=== PATIENT | female | born 1945 | race Caucasian/White ===

== ENCOUNTER 2019-06-06 22:28 | Inpatient (IN) | payer OTHER, MEDICAID ==
[~2019-06-06] VITALS: Ht 152.4 cm; Wt 51.8 kg
[2019-06-06] VITALS: BP 93/40
[2019-06-06 20:00] VITALS: BP 98/44
[2019-06-06 21:30] VITALS: BP 98/44
[2019-06-06] MEDS ORDERED: ACETAMINOPHEN 325MG TABLET PO PRN (23:45)
[2019-06-07] MEDS ORDERED: PIPERACILLIN/TAZOBACTAM 3.375 G in DEXT 5% WATER 100 ML IV SCH ×2 (02:00→09:00)
[2019-06-07] MEDS ORDERED: NITR0.4T49 SL (02:14)
[2019-06-07] MEDS ORDERED: LOSA1TAB34 MT (02:15)
[2019-06-07] MEDS ORDERED: LOPHC2 MT (02:17)
[2019-06-07] MEDS ORDERED: DONE10TA36 PO (02:18)
[2019-06-07] MEDS ORDERED: VANCOMYCIN 1 G PREMIX 200 ML IV SCH (03:00)
[2019-06-07 04:00] VITALS: BP 91/42
[2019-06-07 06:00] LABS: HEMOGLOBIN. 8.4 g/dL (12.0-16.0); MEAN CORPUSCULAR HEMOGLOBIN 29.3 pg (28.0-32.0); MEAN PLATELET VOLUME 9.6 fl (7.4-10.4); RED BLOOD CELL COUNT 2.88 mill/uL (4.2-5.4); RED CELL DISTRIBUTION WIDTH 20.2 % (11.6-14.6)
[2019-06-07 06:12] LABS: CHLORIDE 108 mEq/L (98-107)
[2019-06-07 08:00] VITALS: BP_SYST 95; BP_SYST 97; BP_DIAS 45; BP_DIAS 46
[2019-06-07 08:11] LABS: PLATELET 14 x1000/uL (130-400)
[2019-06-07 12:00] VITALS: BP 93/49
[2019-06-07 13:34] LABS: PLATELET ESTIMATE MARKEDLY DECREASED
[2019-06-07] MEDS ORDERED: ONDANSETRON HCL 4MG/2ML INJ IV PRN (14:30)
[2019-06-07] MEDS ORDERED: IPRATROPIUM/ALBUTEROL 0.5-3(2.5)MG/3ML NEB HHN PRN (14:30)
[2019-06-07] MEDS: CEFEPIME 1,000 MG in DEXTROSE 5% WATER 50 ML IV SCH (15:53)
[2019-06-07 16:00] VITALS: BP 87/48
[2019-06-07 16:32] LABS: CLARITY URINE CLOUDY (CLEAR); COLOR URINE YELLOW (YELLOW); KETONES URINE NEGATIVE (NEGATIVE); LEUKOCYTE ESTERASE URINE NEGATIVE (NEGATIVE); NITRITE URINE NEGATIVE (NEGATIVE); OCCULT BLOOD URINE NEGATIVE (NEGATIVE); PH URINE 7.5 (4.5-8.0); PROTEIN URINE NEGATIVE (NEGATIVE)
[2019-06-07 16:47] LABS: *AMPHETAMINES SCREEN URINE NEGATIVE (NEGATIVE); *BARBITURATES SCREEN URINE NEGATIVE (NEGATIVE); *COCAINE SCREEN URINE NEGATIVE (NEGATIVE); METHADONE URINE SCREEN NEGATIVE (NEGATIVE); OPIATES URINE SCREEN NEGATIVE (NEGATIVE)
[2019-06-07 16:48] LABS: *BENZODIAZEPINES SCREEN URINE NEGATIVE (NEGATIVE); CANNABINOID URINE SCREEN NEGATIVE (NEGATIVE); PHENCYCLIDINE URINE SCREEN NEGATIVE (NEGATIVE)
[2019-06-07] MEDS: VANCOMYCIN 500 MG PREMIX 100 ML IV SCH (17:17)
[2019-06-07 20:00] VITALS: BP 93/52
[2019-06-08] VITALS: BP 94/54
[2019-06-08 04:00] VITALS: BP 99/55
[2019-06-08] MEDS: CEFEPIME 1,000 MG in DEXTROSE 5% WATER 50 ML IV SCH ×2 (05:14→14:31)
[2019-06-08] MEDS: VANCOMYCIN 500 MG PREMIX 100 ML IV SCH (06:04)
[2019-06-08 06:34] LABS: HEMATOCRIT. 27.1 % (36.0-48.0); MEAN CORPUSCULAR HEMOGLOBIN 28.7 pg (28.0-32.0); MEAN CORPUSCULAR VOLUME 86.4 fL (81.0-99.0); MEAN PLATELET VOLUME 9.6 fl (7.4-10.4); RED BLOOD CELL COUNT 3.14 mill/uL (4.2-5.4); RED CELL DISTRIBUTION WIDTH 20.8 % (11.6-14.6)
[2019-06-08 06:52] LABS: CHLORIDE 110 mEq/L (98-107)
[2019-06-08 08:00] VITALS: BP 96/48
[2019-06-08 09:00] LABS: PLATELET ESTIMATE MARKEDLY DECREASED
[2019-06-08 09:01] LABS: PLATELET 13 x1000/uL (130-400)
[2019-06-08 12:00] VITALS: BP 98/41
[2019-06-08 13:41] LABS: HEPATITIS B SURFACE ANTIGEN NEGATIVE
[2019-06-08 14:11] LABS: HEPATITIS A AB IGM NEGATIVE (NEGATIVE)
[2019-06-08 16:00] VITALS: BP 74/30
[2019-06-08] MEDS: VANCOMYCIN 1 G PREMIX 200 ML IV SCH (16:12)
[2019-06-08] MEDS ORDERED: MIDODRINE HCL 5MG TABLET PO NR (17:12)
[2019-06-08] MEDS ORDERED: SODIUM CHLORIDE 0.9% 500 ML IV NR (17:15)
[2019-06-08] MEDS ORDERED: MIDODRINE HCL 5MG TABLET PO PRN (17:15)
[2019-06-08 20:00] VITALS: BP 90/51
[2019-06-09] VITALS (7 sets, daily range): BP systolic 88–101; BP diastolic 46–56
[2019-06-09] MEDS: VANCOMYCIN 1 G PREMIX 200 ML IV SCH ×3 (00:25→16:06)
[2019-06-09] MEDS: CEFEPIME 1,000 MG in DEXTROSE 5% WATER 50 ML IV SCH ×2 (04:04→16:06)
[2019-06-09 08:09] LABS: CANCER ANTIGEN 125 50.3 U/mL (0.0-38.1)
[2019-06-09] MEDS ORDERED: MIDODRINE HCL 5MG TABLET PO PRN (10:30)
[2019-06-09 12:20] LABS: HEMOGLOBIN 9.1 g/dL (12.0-16.0); MEAN CORPUSCULAR HEMOGLOBIN 28.9 pg (28.0-32.0); MEAN CORPUSCULAR VOLUME 85.8 fL (81.0-99.0); RED BLOOD CELL COUNT 3.14 mill/uL (4.2-5.4); RED CELL DISTRIBUTION WIDTH 21.1 % (11.6-14.6)
[2019-06-09 12:23] LABS: CHLORIDE 111 mEq/L (98-107)
[2019-06-09 12:25] LABS: PLATELET 14 x1000/uL (130-400)
[2019-06-09 12:49] LABS: INR 1.3; PROTHROMBIN TIME 12.7 sec (9.6-11.0)
[2019-06-09] MEDS ORDERED: ACETAMINOPHEN 650MG SUPP PR PRN (16:15)
[2019-06-09] MEDS ORDERED: LACTULOSE 20G/30ML UDC PO PRN (16:15)
[2019-06-09] MEDS ORDERED: IPRATROPIUM/ALBUTEROL 0.5-3(2.5)MG/3ML NEB HHN PRN (16:15)
[2019-06-09] MEDS ORDERED: DIPHENHYDRAMINE 50MG/ML VIAL IV PRN (16:15)
[2019-06-09] MEDS ORDERED: HYDROCODONE/ACETAMINOPHEN 5/325MG TABLET PO PRN (16:18)
[2019-06-09 16:56] LABS: BG BASE EXCESS 2.4 mmol/L (-2.0-2.0); BG CARBOXYHEMOGLOBIN 0.4 % (0.5-1.5); BG DEOXYHEMOGLOBIN 6.6 % (0.0-5.0); BG FRACTION INSPIRED OXYGEN 21; BG HCO3 ACT 25.6 mmol/L (22.0-26.0); BG METHEMOGLOBIN 0.3 % (0.0-1.5); BG OXYGEN SATURATION 93.4 % (92.0-98.5); BG OXYHEMOGLOBIN 92.7 % (94.0-97.0); BG PCO2 34.1 mmHg (35.0-45.0); BG PH 7.493 (7.350-7.450); BG PO2 71.2 mmHg (75.0-100.0); BG SAMPLE SITE RIGHT BRACHIAL; BG VENT MODE ROOM AIR
[2019-06-09] MEDS: DEXT 5%/0.45% NACL 1000ML 1,000 ML IV SCH (16:57)
[2019-06-09] MEDS: IPRATROPIUM/ALBUTEROL 0.5-3(2.5)MG/3ML NEB HHN SCH (21:32)
[2019-06-09] MEDS ORDERED: IOHEXOL-300 100 ML BOTTLE ONE (23:03)
[2019-06-10] VITALS: BP 96/55
[2019-06-10] MEDS: IPRATROPIUM/ALBUTEROL 0.5-3(2.5)MG/3ML NEB HHN SCH ×4 (02:16→21:25)
[2019-06-10] MEDS: CEFEPIME 1,000 MG in DEXTROSE 5% WATER 50 ML IV SCH ×2 (03:11→15:30)
[2019-06-10 04:00] VITALS: BP 93/51
[2019-06-10 06:39] LABS: HEMATOCRIT. 25.6 % (36.0-48.0); HEMOGLOBIN. 8.5 g/dL (12.0-16.0); MEAN PLATELET VOLUME 9.7 fl (7.4-10.4); RED BLOOD CELL COUNT 2.95 mill/uL (4.2-5.4); RED CELL DISTRIBUTION WIDTH 20.6 % (11.6-14.6)
[2019-06-10 06:50] LABS: CHLORIDE 109 mEq/L (98-107)
[2019-06-10] MEDS ORDERED: PROPOFOL 200MG/20ML VIAL IV ONE (07:38)
[2019-06-10] MEDS ORDERED: LIDOCAINE HCL 1% 20ML VIAL (Pyxis) INJ ONE (07:38)
[2019-06-10 07:42] LABS: PLATELET 14 x1000/uL (130-400)
[2019-06-10 11:46] LABS: PLATELET ESTIMATE MARKEDLY DECREASED
[2019-06-10 12:00] VITALS: BP 96/43
[2019-06-10 16:00] VITALS: BP 100/51
[2019-06-10 20:00] VITALS: BP 93/49
[2019-06-10] MEDS: ACETAMINOPHEN 325MG TABLET PO PRN (20:40)
[2019-06-11] VITALS: BP_SYST 91; BP_SYST 99; BP_DIAS 41; BP_DIAS 62
[2019-06-11] MEDS: CEFEPIME 1,000 MG in DEXTROSE 5% WATER 50 ML IV SCH ×2 (02:54→15:59)
[2019-06-11] MEDS: IPRATROPIUM/ALBUTEROL 0.5-3(2.5)MG/3ML NEB HHN SCH ×4 (03:57→20:13)
[2019-06-11 04:00] VITALS: BP 91/41
[2019-06-11 06:45] LABS: HEMATOCRIT 27.4 % (36.0-48.0); HEMOGLOBIN 9.1 g/dL (12.0-16.0); MEAN CORPUSCULAR HEMOGLOBIN 29.7 pg (28.0-32.0); MEAN CORPUSCULAR VOLUME 89.5 fL (81.0-99.0); RED BLOOD CELL COUNT 3.06 mill/uL (4.2-5.4); RED CELL DISTRIBUTION WIDTH 21.4 % (11.6-14.6)
[2019-06-11 06:48] LABS: CHLORIDE 112 mEq/L (98-107)
[2019-06-11 07:07] LABS: HIV SCREEN 4G Non Reactive (Non Reactive)
[2019-06-11 07:25] LABS: PLATELET 22 x1000/uL (130-400)
[2019-06-11 08:00] VITALS: BP 87/42
[2019-06-11 11:59] VITALS: BP 97/55
[2019-06-11] MEDS ORDERED: SODIUM CHLORIDE 10% FOR INH 15ML VIAL NEB INH SCH (12:00)
[2019-06-11 16:00] VITALS: BP 92/61
[2019-06-11 20:00] VITALS: BP 96/50
[2019-06-11] MEDS ORDERED: IOHEXOL-300 100 ML BOTTLE ONE (21:25)
[2019-06-11] MEDS: DEXT 5%/0.45% NACL 1000ML 1,000 ML IV SCH (21:47)
[2019-06-12] VITALS: BP 90/43
[2019-06-12] MEDS: IPRATROPIUM/ALBUTEROL 0.5-3(2.5)MG/3ML NEB HHN SCH ×4 (01:30→21:13)
[2019-06-12] MEDS: CEFEPIME 1,000 MG in DEXTROSE 5% WATER 50 ML IV SCH ×2 (02:28→15:37)
[2019-06-12 04:00] VITALS: BP 99/50
[2019-06-12 07:21] LABS: HEMATOCRIT. 26.4 % (36.0-48.0); HEMOGLOBIN. 8.9 g/dL (12.0-16.0); MEAN CORPUSCULAR HEMOGLOBIN 29.1 pg (28.0-32.0); MEAN CORPUSCULAR VOLUME 86.2 fL (81.0-99.0); MEAN PLATELET VOLUME 9.6 fl (7.4-10.4); RED BLOOD CELL COUNT 3.07 mill/uL (4.2-5.4); RED CELL DISTRIBUTION WIDTH 21.2 % (11.6-14.6)
[2019-06-12 07:57] LABS: CHLORIDE 110 mEq/L (98-107)
[2019-06-12 08:24] LABS: PLATELET 16 x1000/uL (130-400)
[2019-06-12 12:00] VITALS: BP 68/29
[2019-06-12] MEDS ORDERED: SODIUM CHLORIDE 0.9% 1,000 ML IV SCH ×2 (12:45→13:00)
[2019-06-12 14:16] LABS: PLATELET ESTIMATE MARKEDLY DECREASED
[2019-06-12] MEDS: MIDODRINE HCL 5MG TABLET PO SCH ×2 (15:37→22:38)
[2019-06-12 16:00] VITALS: BP 99/51
[2019-06-12 17:00] VITALS: BP 110/55
[2019-06-12 20:00] VITALS: BP 90/43
[2019-06-12] MEDS: DEXT 5%/0.45% NACL 1000ML 1,000 ML IV SCH (22:40)
[2019-06-13] VITALS: BP 103/49
[2019-06-13] MEDS: CEFEPIME 1,000 MG in DEXTROSE 5% WATER 50 ML IV SCH ×2 (02:51→16:03)
[2019-06-13] MEDS: DEXT 5%/0.45% NACL 1000ML 1,000 ML IV SCH ×2 (02:51→21:59)
[2019-06-13] MEDS: IPRATROPIUM/ALBUTEROL 0.5-3(2.5)MG/3ML NEB HHN SCH ×4 (03:03→21:28)
[2019-06-13 04:00] VITALS: BP_SYST 78; BP_SYST 79; BP_SYST 88; BP_DIAS 36; BP_DIAS 39; BP_DIAS 45
[2019-06-13] MEDS: MIDODRINE HCL 5MG TABLET PO SCH ×3 (06:29→21:54)
[2019-06-13 06:52] LABS: HEMATOCRIT. 24.8 % (36.0-48.0); HEMOGLOBIN. 8.3 g/dL (12.0-16.0); MEAN PLATELET VOLUME 9.5 fl (7.4-10.4); RED BLOOD CELL COUNT 2.85 mill/uL (4.2-5.4); RED CELL DISTRIBUTION WIDTH 21.7 % (11.6-14.6)
[2019-06-13 07:05] LABS: PLATELET 15 x1000/uL (130-400)
[2019-06-13 07:21] LABS: CHLORIDE 111 mEq/L (98-107)
[2019-06-13 08:48] VITALS: BP 94/45
[2019-06-13 10:13] LABS: PLATELET ESTIMATE MARKEDLY DECREASED
[2019-06-13 12:08] VITALS: BP 93/47
[2019-06-13] MEDS ORDERED: SODIUM CHLORIDE 10% FOR INH 15ML VIAL NEB INH NR (15:00)
[2019-06-13 16:36] VITALS: BP 95/49
[2019-06-13 20:00] VITALS: BP_SYST 90; BP_SYST 95; BP_SYST 98; BP_DIAS 40; BP_DIAS 48
[2019-06-14] VITALS: BP 93/35
[2019-06-14] MEDS: IPRATROPIUM/ALBUTEROL 0.5-3(2.5)MG/3ML NEB HHN SCH ×4 (01:24→21:17)
[2019-06-14] MEDS: CEFEPIME 1,000 MG in DEXTROSE 5% WATER 50 ML IV SCH ×2 (03:56→16:02)
[2019-06-14 04:00] VITALS: BP 93/41
[2019-06-14 06:37] LABS: HEMATOCRIT. 25.3 % (36.0-48.0); HEMOGLOBIN. 8.6 g/dL (12.0-16.0); MEAN CORPUSCULAR HEMOGLOBIN 29.8 pg (28.0-32.0); MEAN CORPUSCULAR VOLUME 88.1 fL (81.0-99.0); MEAN PLATELET VOLUME 9.6 fl (7.4-10.4); RED BLOOD CELL COUNT 2.87 mill/uL (4.2-5.4)
[2019-06-14] MEDS: MIDODRINE HCL 5MG TABLET PO SCH ×3 (06:44→20:57)
[2019-06-14 06:59] LABS: CHLORIDE 109 mEq/L (98-107)
[2019-06-14 07:57] LABS: PLATELET 16 x1000/uL (130-400)
[2019-06-14] MEDS ORDERED: SODIUM CHLORIDE 10% FOR INH 15ML VIAL NEB INH NR ×2 (08:00→15:00)
[2019-06-14 08:32] VITALS: BP 90/40
[2019-06-14 10:38] LABS: NUCLEATED RED BLOOD CELLS 1 /100 WBC; PLATELET ESTIMATE MARKEDLY DECREASED
[2019-06-14 12:37] VITALS: BP 91/45
[2019-06-14] MEDS: DEXT 5%/0.45% NACL 1000ML 1,000 ML IV SCH (13:29)
[2019-06-14 16:18] VITALS: BP 98/46
[2019-06-14 20:00] VITALS: BP_SYST 109; BP_SYST 75; BP_SYST 91; BP_SYST 93; BP_DIAS 37; BP_DIAS 39; BP_DIAS 44; BP_DIAS 46
[2019-06-14] MEDS: ACETAMINOPHEN 325MG TABLET PO PRN (20:57)
[2019-06-15] VITALS (10 sets, daily range): BP systolic 88–102; BP diastolic 37–46
[2019-06-15] MEDS: IPRATROPIUM/ALBUTEROL 0.5-3(2.5)MG/3ML NEB HHN SCH ×4 (01:36→21:22)
[2019-06-15] MEDS: MIDODRINE HCL 5MG TABLET PO SCH ×3 (05:55→21:15)
[2019-06-15 06:27] LABS: HEMATOCRIT. 25.2 % (36.0-48.0); HEMOGLOBIN. 8.3 g/dL (12.0-16.0); MEAN CORPUSCULAR HEMOGLOBIN 29.1 pg (28.0-32.0); MEAN CORPUSCULAR VOLUME 88.1 fL (81.0-99.0); MEAN PLATELET VOLUME 9.3 fl (7.4-10.4); RED BLOOD CELL COUNT 2.86 mill/uL (4.2-5.4); RED CELL DISTRIBUTION WIDTH 21.9 % (11.6-14.6)
[2019-06-15 06:36] LABS: CHLORIDE 111 mEq/L (98-107)
[2019-06-15 06:47] LABS: T4 FREE 0.86 ng/dL (0.76-1.46)
[2019-06-15 13:24] LABS: NUCLEATED RED BLOOD CELLS 1 /100 WBC
[2019-06-15 13:25] LABS: PLATELET 14 x1000/uL (130-400); PLATELET ESTIMATE MARKEDLY DECREASED
[2019-06-15] MEDS: DEXT 5%/0.45% NACL 1000ML 1,000 ML IV SCH (15:15)
[2019-06-15] MEDS ORDERED: SODIUM CHLORIDE 10% FOR INH 15ML VIAL NEB INH NR (16:00)
[2019-06-15] MEDS: CEFTAZIDIME PENTAHYDRATE 2 G in DEXT 5% WATER 100 ML IV SCH (17:09)
[2019-06-16] VITALS (8 sets, daily range): BP systolic 82–107; BP diastolic 40–58
[2019-06-16] MEDS: ACETAMINOPHEN 325MG TABLET PO PRN (00:32)
[2019-06-16] MEDS: CEFTAZIDIME PENTAHYDRATE 2 G in DEXT 5% WATER 100 ML IV SCH ×4 (00:36→23:28)
[2019-06-16 06:05] LABS: CHLORIDE 110 mEq/L (98-107)
[2019-06-16 06:05] LABS: INR 1.1; PROTHROMBIN TIME 11.4 sec (9.6-11.0)
[2019-06-16 06:18] LABS: HEMATOCRIT 24.5 % (36.0-48.0); HEMOGLOBIN 8.2 g/dL (12.0-16.0); MEAN CORPUSCULAR HEMOGLOBIN 29.6 pg (28.0-32.0); MEAN CORPUSCULAR VOLUME 88.3 fL (81.0-99.0); RED BLOOD CELL COUNT 2.78 mill/uL (4.2-5.4); RED CELL DISTRIBUTION WIDTH 21.7 % (11.6-14.6)
[2019-06-16] MEDS: MIDODRINE HCL 5MG TABLET PO SCH ×3 (06:26→22:26)
[2019-06-16] MEDS: IPRATROPIUM/ALBUTEROL 0.5-3(2.5)MG/3ML NEB HHN SCH ×3 (08:27→21:08)
[2019-06-16] MEDS ORDERED: HYDROCODONE/ACETAMINOPHEN 5/325MG TABLET PO PRN (14:15)
[2019-06-16] MEDS: DEXT 5%/0.45% NACL 1000ML 1,000 ML IV SCH (14:23)
[2019-06-16 17:06] LABS: HISTOPLASMA ABS QT DID Negative (Neg:<1:1)
[2019-06-16 18:45] LABS: CLARITY URINE TURBID (CLEAR); COLOR URINE YELLOW (YELLOW); KETONES URINE NEGATIVE (NEGATIVE); LEUKOCYTE ESTERASE URINE NEGATIVE (NEGATIVE); NITRITE URINE NEGATIVE (NEGATIVE); OCCULT BLOOD URINE NEGATIVE (NEGATIVE); PROTEIN URINE 1+ (NEGATIVE); SPECIFIC GRAVITY URINE 1.014 (1.005-1.030); UROBILINOGEN URINE 0.2 E.U./dL (0.2-1.0)
[2019-06-17] VITALS: BP 89/43
[2019-06-17] MEDS: IPRATROPIUM/ALBUTEROL 0.5-3(2.5)MG/3ML NEB HHN SCH ×4 (01:05→20:17)
[2019-06-17 04:00] VITALS: BP 87/43
[2019-06-17] MEDS: ACETAMINOPHEN 325MG TABLET PO PRN ×2 (05:05→21:13)
[2019-06-17] MEDS: MIDODRINE HCL 5MG TABLET PO SCH ×3 (05:05→21:13)
[2019-06-17 06:08] LABS: QFT MITOGEN VALUE >10.00 IU/mL (.); QFT TB GOLD PLUS Negative (Negative); QFT TB1 AG VALUE 0.62 IU/mL (.)
[2019-06-17] MEDS: DEXT 5%/0.45% NACL 1000ML 1,000 ML IV SCH ×2 (06:24→15:32)
[2019-06-17] MEDS: LEVOTHYROXINE SODIUM 25MCG TABLET PO SCH (06:31)
[2019-06-17 06:36] LABS: HEMATOCRIT. 23.9 % (36.0-48.0); HEMOGLOBIN. 8.1 g/dL (12.0-16.0); MEAN CORPUSCULAR HEMOGLOBIN 29.3 pg (28.0-32.0); MEAN CORPUSCULAR VOLUME 85.9 fL (81.0-99.0); MEAN PLATELET VOLUME 9.4 fl (7.4-10.4); RED BLOOD CELL COUNT 2.78 mill/uL (4.2-5.4); RED CELL DISTRIBUTION WIDTH 21.9 % (11.6-14.6)
[2019-06-17 06:50] LABS: CHLORIDE 104 mEq/L (98-107)
[2019-06-17 08:00] VITALS: BP_SYST 84; BP_SYST 87; BP_SYST 97; BP_DIAS 42; BP_DIAS 53; BP_DIAS 60
[2019-06-17 08:06] LABS: PLATELET 17 x1000/uL (130-400)
[2019-06-17] MEDS: CEFTAZIDIME PENTAHYDRATE 2 G in DEXT 5% WATER 100 ML IV SCH ×2 (08:42→16:37)
[2019-06-17 12:49] LABS: PLATELET ESTIMATE MARKEDLY DECREASED
[2019-06-17] MEDS: FLUCONAZOLE 100MG TABLET PO SCH ×2 (15:29→21:12)
[2019-06-17 16:00] VITALS: BP 125/43
[2019-06-17 20:00] VITALS: BP 93/40
[2019-06-18] VITALS (7 sets, daily range): BP systolic 85–131; BP diastolic 40–70
[2019-06-18] MEDS: CEFTAZIDIME PENTAHYDRATE 2 G in DEXT 5% WATER 100 ML IV SCH ×3 (01:05→22:22)
[2019-06-18] MEDS: IPRATROPIUM/ALBUTEROL 0.5-3(2.5)MG/3ML NEB HHN SCH ×4 (02:38→21:34)
[2019-06-18] MEDS: MIDODRINE HCL 5MG TABLET PO SCH ×3 (06:32→21:40)
[2019-06-18] MEDS: LEVOTHYROXINE SODIUM 25MCG TABLET PO SCH (06:32)
[2019-06-18] MEDS: FLUCONAZOLE 100MG TABLET PO SCH (08:40)
[2019-06-18] MEDS ORDERED: FENTANYL CITRATE/PF 50MCG/ML 2ML VIAL ONE (16:00)
[2019-06-18] MEDS ORDERED: MIDAZOLAM HCL 2 MG/2 ML VIAL ONE (16:00)
[2019-06-18] MEDS ORDERED: PROPOFOL 200MG/20ML VIAL IV ONE (16:01)
[2019-06-18] MEDS ORDERED: HYDROMORPHONE HCL/PF 2MG/ML CPJ IV PRN (16:45)
[2019-06-18] MEDS ORDERED: MEPERIDINE HCL/PF 25MG/ML CPJ IV PRN (16:45)
[2019-06-18] MEDS ORDERED: LABETALOL 5MG/ML SYR 20 MG/4 ML SYRINGE IV PRN (16:45)
[2019-06-18] MEDS ORDERED: ONDANSETRON HCL 4MG/2ML INJ IV PRN (16:45)
[2019-06-18] MEDS: DEXT 5%/0.45% NACL 1000ML 1,000 ML IV SCH (21:39)
[2019-06-18] MEDS: ACETAMINOPHEN 325MG TABLET PO PRN (21:40)
[2019-06-19] VITALS (8 sets, daily range): BP systolic 89–121; BP diastolic 40–65
[2019-06-19] MEDS: IPRATROPIUM/ALBUTEROL 0.5-3(2.5)MG/3ML NEB HHN SCH ×2 (02:02→21:04)
[2019-06-19] MEDS: CEFTAZIDIME PENTAHYDRATE 2 G in DEXT 5% WATER 100 ML IV SCH ×3 (05:34→21:08)
[2019-06-19] MEDS: MIDODRINE HCL 5MG TABLET PO SCH ×3 (05:34→20:38)
[2019-06-19 07:37] LABS: CHLORIDE 106 mEq/L (98-107)
[2019-06-19] MEDS: FLUCONAZOLE 100MG TABLET PO SCH (09:17)
[2019-06-19] MEDS: LEVOTHYROXINE SODIUM 25MCG TABLET PO SCH (09:17)
[2019-06-19 09:33] LABS: HEMATOCRIT. 24.1 % (36.0-48.0); HEMOGLOBIN. 8.1 g/dL (12.0-16.0); MEAN CORPUSCULAR HEMOGLOBIN 28.7 pg (28.0-32.0); MEAN CORPUSCULAR VOLUME 85.2 fL (81.0-99.0); MEAN PLATELET VOLUME 9.7 fl (7.4-10.4); RED BLOOD CELL COUNT 2.83 mill/uL (4.2-5.4); RED CELL DISTRIBUTION WIDTH 21.7 % (11.6-14.6)
[2019-06-19 09:36] LABS: PLATELET 16 x1000/uL (130-400)
[2019-06-19] MEDS: DEXT 5%/0.45% NACL 1000ML 1,000 ML IV SCH ×2 (09:50→20:39)
[2019-06-19 10:41] LABS: PLATELET ESTIMATE MARKEDLY DECREASED
[2019-06-19] MEDS: ACETAMINOPHEN 325MG TABLET PO PRN (17:01)
[2019-06-20] VITALS (7 sets, daily range): BP systolic 53–110; BP diastolic 24–49
[2019-06-20] MEDS: IPRATROPIUM/ALBUTEROL 0.5-3(2.5)MG/3ML NEB HHN SCH ×4 (02:00→20:42)
[2019-06-20] MEDS: DEXT 5%/0.45% NACL 1000ML 1,000 ML IV SCH ×2 (02:30→14:02)
[2019-06-20] MEDS: CEFTAZIDIME PENTAHYDRATE 2 G in DEXT 5% WATER 100 ML IV SCH ×3 (05:21→21:22)
[2019-06-20] MEDS: ACETAMINOPHEN 325MG TABLET PO PRN ×2 (05:21→17:04)
[2019-06-20] MEDS: LEVOTHYROXINE SODIUM 25MCG TABLET PO SCH (06:33)
[2019-06-20] MEDS: MIDODRINE HCL 5MG TABLET PO SCH ×3 (06:34→21:22)
[2019-06-20 06:46] LABS: HEMATOCRIT. 24.9 % (36.0-48.0); HEMOGLOBIN. 8.4 g/dL (12.0-16.0); MEAN CORPUSCULAR HEMOGLOBIN 28.9 pg (28.0-32.0); MEAN CORPUSCULAR VOLUME 85.6 fL (81.0-99.0); MEAN PLATELET VOLUME 9.7 fl (7.4-10.4); PLATELET 16 x1000/uL (130-400); RED BLOOD CELL COUNT 2.91 mill/uL (4.2-5.4); RED CELL DISTRIBUTION WIDTH 21.5 % (11.6-14.6)
[2019-06-20 06:50] LABS: CHLORIDE 102 mEq/L (98-107)
[2019-06-20] MEDS: FLUCONAZOLE 100MG TABLET PO SCH (08:47)
[2019-06-20 09:18] LABS: NUCLEATED RED BLOOD CELLS 1 /100 WBC
[2019-06-20 09:19] LABS: PLATELET ESTIMATE MARKEDLY DECREASED
[2019-06-21 00:17] VITALS: BP 92/45
[2019-06-21] MEDS: IPRATROPIUM/ALBUTEROL 0.5-3(2.5)MG/3ML NEB HHN SCH ×3 (01:28→20:58)
[2019-06-21 04:00] VITALS: BP 109/50
[2019-06-21] MEDS: ACETAMINOPHEN 325MG TABLET PO PRN ×2 (05:07→23:09)
[2019-06-21] MEDS: MIDODRINE HCL 5MG TABLET PO SCH ×3 (05:07→22:54)
[2019-06-21] MEDS: CEFTAZIDIME PENTAHYDRATE 2 G in DEXT 5% WATER 100 ML IV SCH ×3 (05:08→22:54)
[2019-06-21] MEDS: LEVOTHYROXINE SODIUM 25MCG TABLET PO SCH (06:55)
[2019-06-21 07:26] LABS: HEMATOCRIT. 24.1 % (36.0-48.0); HEMOGLOBIN. 8.2 g/dL (12.0-16.0); MEAN CORPUSCULAR HEMOGLOBIN 28.9 pg (28.0-32.0); MEAN CORPUSCULAR VOLUME 85.1 fL (81.0-99.0); MEAN PLATELET VOLUME 10.1 fl (7.4-10.4); RED BLOOD CELL COUNT 2.83 mill/uL (4.2-5.4); RED CELL DISTRIBUTION WIDTH 21.1 % (11.6-14.6)
[2019-06-21 07:46] LABS: PLATELET 15 x1000/uL (130-400)
[2019-06-21 08:00] VITALS: BP 98/43
[2019-06-21 08:04] LABS: CHLORIDE 102 mEq/L (98-107)
[2019-06-21 08:20] LABS: CREATINE KINASE 116 IU/L (26-192)
[2019-06-21] MEDS: FLUCONAZOLE 100MG TABLET PO SCH (09:06)
[2019-06-21] MEDS: DEXT 5%/0.45% NACL 1000ML 1,000 ML IV SCH (09:12)
[2019-06-21 12:17] VITALS: BP 88/44
[2019-06-21 13:17] LABS: PLATELET ESTIMATE MARKEDLY DECREASED
[2019-06-21 16:16] VITALS: BP 100/54
[2019-06-21 20:38] VITALS: BP 112/40
[2019-06-22] VITALS (8 sets, daily range): BP systolic 88–119; BP diastolic 42–63
[2019-06-22] MEDS: IPRATROPIUM/ALBUTEROL 0.5-3(2.5)MG/3ML NEB HHN SCH ×4 (01:43→21:00)
[2019-06-22] MEDS: DEXT 5%/0.45% NACL 1000ML 1,000 ML IV SCH ×2 (04:34→21:10)
[2019-06-22] MEDS: MIDODRINE HCL 5MG TABLET PO SCH ×3 (05:09→21:30)
[2019-06-22] MEDS: CEFTAZIDIME PENTAHYDRATE 2 G in DEXT 5% WATER 100 ML IV SCH ×2 (05:09→13:26)
[2019-06-22 06:59] LABS: CHLORIDE 103 mEq/L (98-107)
[2019-06-22 07:19] LABS: HEMATOCRIT. 23.7 % (36.0-48.0); MEAN CORPUSCULAR HEMOGLOBIN 28.9 pg (28.0-32.0); MEAN CORPUSCULAR VOLUME 85.7 fL (81.0-99.0); MEAN PLATELET VOLUME 10.1 fl (7.4-10.4); RED BLOOD CELL COUNT 2.76 mill/uL (4.2-5.4); RED CELL DISTRIBUTION WIDTH 21.2 % (11.6-14.6)
[2019-06-22 08:55] LABS: NUCLEATED RED BLOOD CELLS 1 /100 WBC
[2019-06-22 08:59] LABS: PLATELET ESTIMATE MARKEDLY DECREASED
[2019-06-22 09:01] LABS: PLATELET 17 x1000/uL (130-400)
[2019-06-22] MEDS: FLUCONAZOLE 100MG TABLET PO SCH (09:20)
[2019-06-22] MEDS: LEVOTHYROXINE SODIUM 25MCG TABLET PO SCH (09:20)
[2019-06-22] MEDS: ACETAMINOPHEN 325MG TABLET PO PRN (17:57)
[2019-06-23] MEDS: IPRATROPIUM/ALBUTEROL 0.5-3(2.5)MG/3ML NEB HHN SCH ×4 (02:46→20:08)
[2019-06-23 04:00] VITALS: BP 131/63
[2019-06-23] MEDS: MIDODRINE HCL 5MG TABLET PO SCH ×3 (05:41→23:15)
[2019-06-23] MEDS: DEXT 5%/0.45% NACL 1000ML 1,000 ML IV SCH ×2 (05:42→23:14)
[2019-06-23 08:00] VITALS: BP 110/56
[2019-06-23] MEDS: ACETAMINOPHEN 325MG TABLET PO PRN (08:50)
[2019-06-23] MEDS: LEVOTHYROXINE SODIUM 25MCG TABLET PO SCH (08:50)
[2019-06-23] MEDS: FLUCONAZOLE 100MG TABLET PO SCH (08:50)
[2019-06-23 12:00] VITALS: BP_SYST 83; BP_SYST 86; BP_SYST 91; BP_DIAS 39; BP_DIAS 43; BP_DIAS 45
[2019-06-23 12:42] LABS: HEMATOCRIT 22.4 % (36.0-48.0); HEMOGLOBIN 7.5 g/dL (12.0-16.0); MEAN CORPUSCULAR HEMOGLOBIN 28.2 pg (28.0-32.0); MEAN CORPUSCULAR VOLUME 83.6 fL (81.0-99.0); RED BLOOD CELL COUNT 2.68 mill/uL (4.2-5.4); RED CELL DISTRIBUTION WIDTH 21.2 % (11.6-14.6)
[2019-06-23 12:49] LABS: PLATELET 15 x1000/uL (130-400)
[2019-06-23 12:50] LABS: CHLORIDE 103 mEq/L (98-107)
[2019-06-23] MEDS ORDERED: POTASSIUM CHLORIDE 20MEQ TABLET SR PO SCH (15:00)
[2019-06-23] MEDS ORDERED: SODIUM CHLORIDE 0.9% 250 ML IV ONE (15:30)
[2019-06-23] MEDS ORDERED: SODIUM CHLORIDE 0.9% 500 ML IV ONE (15:45)
[2019-06-23 16:00] VITALS: BP 92/49
[2019-06-23 20:00] VITALS: BP_SYST 114; BP_SYST 128; BP_SYST 131; BP_DIAS 55; BP_DIAS 68
[2019-06-24] VITALS (20 sets, daily range): BP systolic 97–126; BP diastolic 49–74
[2019-06-24] MEDS: IPRATROPIUM/ALBUTEROL 0.5-3(2.5)MG/3ML NEB HHN SCH ×3 (02:16→14:59)
[2019-06-24] MEDS: MIDODRINE HCL 5MG TABLET PO SCH ×3 (06:00→15:24)
[2019-06-24] MEDS: LEVOTHYROXINE SODIUM 25MCG TABLET PO SCH (06:45)
[2019-06-24 08:48] LABS: BG BASE EXCESS -5.7 mmol/L (-2.0-2.0); BG CARBOXYHEMOGLOBIN 0.3 % (0.5-1.5); BG DEOXYHEMOGLOBIN 7.4 % (0.0-5.0); BG FRACTION INSPIRED OXYGEN 32; BG HCO3 ACT 16.6 mmol/L (22.0-26.0); BG METHEMOGLOBIN 0.2 % (0.0-1.5); BG OXYGEN SATURATION 92.6 % (92.0-98.5); BG OXYHEMOGLOBIN 92.1 % (94.0-97.0); BG PH 7.475 (7.350-7.450); BG PO2 66.2 mmHg (75.0-100.0); BG SAMPLE SITE RIGHT RADIAL; BG TOTAL HEMOGLOBIN 9.7 g/dL (12.0-18.0); BG VENT MODE NASAL CANNULA
[2019-06-24] MEDS: FLUCONAZOLE 100MG TABLET PO SCH (09:00)
[2019-06-24 12:55] LABS: HEMATOCRIT. 28.2 % (36.0-48.0); HEMOGLOBIN. 9.4 g/dL (12.0-16.0); MEAN CORPUSCULAR HEMOGLOBIN 28.3 pg (28.0-32.0); MEAN CORPUSCULAR VOLUME 84.7 fL (81.0-99.0); MEAN PLATELET VOLUME 10.3 fl (7.4-10.4); RED BLOOD CELL COUNT 3.33 mill/uL (4.2-5.4); RED CELL DISTRIBUTION WIDTH 21.8 % (11.6-14.6)
[2019-06-24 13:03] LABS: CHLORIDE 104 mEq/L (98-107)
[2019-06-24 13:46] LABS: NUCLEATED RED BLOOD CELLS 2 /100 WBC
[2019-06-24 13:47] LABS: PLATELET ESTIMATE MARKEDLY DECREASED
[2019-06-24 13:49] LABS: PLATELET 17 x1000/uL (130-400)
[2019-06-24] MEDS: ACETAMINOPHEN 325MG TABLET PO PRN (19:36)
== END 2019-06-24 19:30 | disposition short-term general hospital (02) | DRG 840 ==
LOC: 6EST 22:28 → 6WST 22:28 → UNDOADMIN 22:28 → 6EST 06-11 09:33 → 6WST 06-12 17:35 → MICUNO 06-24 09:00
PROVIDERS: ADMIT Internal Medicine; ATTEND Internal Medicine
PROC: 07DQ3ZX Extraction of Sternum Bone Marrow, Percutaneous Approach, Diagnostic (ICD-10-PCS; principal; 2019-06-10)
PROC: 30233R1 Transfusion of Nonautologous Platelets into Peripheral Vein, Percutaneous Approach (ICD-10-PCS; 2019-06-15)
PROC: 07DR3ZX Extraction of Iliac Bone Marrow, Percutaneous Approach, Diagnostic (ICD-10-PCS; 2019-06-18)
DX: C85.90 Non-Hodgkin lymphoma, unspecified, unspecified site (principal); J15.1 Pneumonia due to Pseudomonas; E43 Unspecified severe protein-calorie malnutrition; I50.33 Acute on chronic diastolic (congestive) heart failure; G93.41 Metabolic encephalopathy; D61.818 Other pancytopenia; D68.59 Other primary thrombophilia; N13.30 Unspecified hydronephrosis; B19.10 Unspecified viral hepatitis B without hepatic coma; E78.5 Hyperlipidemia, unspecified; E87.8 Other disorders of electrolyte and fluid balance, not elsewhere classified; E03.9 Hypothyroidism, unspecified; R16.1 Splenomegaly, not elsewhere classified; Z53.29 Procedure and treatment not carried out because of patient's decision for other reasons; I11.0 Hypertensive heart disease with heart failure; R91.8 Other nonspecific abnormal finding of lung field; R62.7 Adult failure to thrive; R59.0 Localized enlarged lymph nodes; I95.9 Hypotension, unspecified; Z68.22 Body mass index [BMI] 22.0-22.9, adult; Z90.49 Acquired absence of other specified parts of digestive tract
CPT/HCPCS: 36415; 36600; 38220; 38221; 71045; 71260; 74178; 76700; 80048; 80076; 80202; 80305; 81003; 82105; 82140; 82375; 82378; 82533; 82550; 82595; 82805; 83615; 84145; 84439; 84443; 84481; 84550; 85027; 85060; 85097; 85384; 85651; 86038; 86140; 86301; 86304; 86480; 86635; 86698; 86705; 86709; 86803; 86850; 86900; 86945; 87070; 87075; 87077; 87102; 87116; 87186; 87340; 87389; 87804; 87899; 88305; 88311; 88312; 88313; 93306; 93970; 94640; 97162; 97530; A6261; C1893; J0692; J0713; J2250; J2405; J2543; J2704; J3010; J3370; J3490; J7040; J7042; J7060; J7131; J7620; P9034; Q9967